=== PATIENT | female | born 1995 | race American Indian/Alaskan Native ===

== ENCOUNTER 2020-01-12 20:43 | Emergency (ER) | payer SELFPAY ==
[2020-01-12 21:25] LABS: Basophils % (Auto) 0.3 % (0.0-1.8); Eosinophils # (Auto) 0.1 K/mm3 (0.0-0.4); Hematocrit 36.8 % (30.3-42.9); Hemoglobin 12.2 gm/dl (10.1-14.3); Lymphocytes # (Auto) 2.3 K/mm3 (1.2-5.4); Lymphocytes % (Auto) 23.5 % (13.4-35.0); Mean Corpuscular HGB Conc 33 % (30-34); Mean Corpuscular Volume 80 fl (79-97); Monocytes # (Auto) 0.8 K/mm3 (0.0-0.8); Monocytes % (Auto) 7.7 % (0.0-7.3); Platelet Count 326 K/mm3 (140-440); Red Blood Count 4.62 M/mm3 (3.65-5.03); Red Cell Distribution Width 16.1 % (13.2-15.2)
[2020-01-12 21:38] LABS: HCG Qualitative,Urine Negative (Negative)
[2020-01-12 21:38] LABS: Alanine Aminotransferase 14 units/L (7-56); Albumin 4.1 g/dL (3.9-5); BUN/Creatinine Ratio 8; Blood Urea Nitrogen 7 mg/dL (7-17); Calcium 9.4 mg/dL (8.4-10.2); Hemolysis Index 4
[2020-01-12 21:40] LABS: Amphetamine Screen,Urine PRESUMPTIVE NEGATIVE; Benzodiazepines Screen,Urine PRESUMPTIVE NEGATIVE; Cannabinoid Screen,Urine PRESUMPTIVE NEGATIVE; Cocaine Screen,Urine PRESUMPTIVE NEGATIVE; Methadone Screen,Urine PRESUMPTIVE NEGATIVE; Opiate Screen,Urine PRESUMPTIVE NEGATIVE
[2020-01-12 22:03] LABS: Mucus,Urine FEW /HPF; RBC,Urine < 1.0 /HPF (0.0-6.0)
[2020-01-12 22:07] LABS: Color,Urine Yellow (Yellow)
[2020-01-12 22:08] LABS: Ictotest,Urine Negative (Negative); Urobilinogen,Urine < 2.0 mg/dL (<2.0)
--- NOTE | 2020-01-12 22:25 | Emergency Department Report ---
ED Psych HPI - General Chief Complaint: Psych Stated Complaint: AMS Time Seen by Provider: 01/12/20 20:53 Source: EMS Mode of arrival: Ambulatory Limitations: Altered Mental Status - History of Present Illness Initial Comments: Chief complaint: "I am Charles Navarro." HPI this is a 24-year-old female without known past medical history who presents with "mental episode". Her sister called 911. She states that her sister has had several mental episodes in the past. She does not appear to have a diagnosis of mental health disorder. Sister informed EMS that patient has been talking to herself. Not answering questions appropriately. Sister also stated that she has been walking up and down the street wrapped in blankets without clothing. At this time contact information of family members not available. Patient just continues to keep repeating her name. She states that "I do not know much." Complaint: altered mental status, other (Abnormal behavior) Associated Psychiatric Symptoms: racing thoughts, other (Walking outside without clothes, disorganized speech and thought) Quality: constant Improves With: none Context: not taking psychiatric Associated Symptoms: denies other symptoms Treatments Prior to Arrival: other (Transported by EMS) - Related Data Allergies Allergy/AdvReac Type Severity Reaction Status Date / Time No Known Allergies Allergy Unverified 01/12/20 20:57 ED Review of Systems ROS: Stated complaint: AMS Other details as noted in HPI Comment: Unobtainable due to pts medical conditions (Limited due to patient's mental state and cooperation. "I am not in pain. I do not know much.") ED Past Medical Hx - Past Medical History Previous Medical History?: No - Surgical History Past Surgical History?: No - Social History Smoking Status: Never Smoker Substance Use Type: None ED Physical Exam - General Limitations: No Limitations General appearance: alert, in no apparent distress, other (Calm, flat affect, poor eye contact) - Head Head exam: Present: atraumatic, normocephalic - Eye Eye exam: Present: normal appearance - ENT ENT exam: Present: mucous membranes moist - Neck Neck exam: Present: normal inspection, full ROM - Respiratory Respiratory exam: Present: normal lung sounds bilaterally. Absent: respiratory distress, wheezes, rales, rhonchi - Cardiovascular Cardiovascular Exam: Present: regular rate, normal rhythm, normal heart sounds. Absent: systolic murmur, diastolic murmur, rubs, gallop - GI/Abdominal GI/Abdominal exam: Present: soft, normal bowel sounds. Absent: distended, tenderness, guarding, rebound - Extremities Exam Extremities exam: Present: normal inspection - Back Exam Back exam: Present: normal inspection - Neurological Exam Neurological exam: Present: alert, other (Oriented to place and person) - Psychiatric Psychiatric exam: Present: flat affect, other (Speaking to person not in the room) - Skin Skin exam: Present: warm, dry, intact, normal color. Absent: rash ED Course Vital Signs 01/12/20 01/12/20 20:58 21:37 Temperature 98.1 F Pulse Rate 103 H Respiratory 16 18 Rate Blood Pressure 98/77 O2 Sat by Pulse 99 99 Oximetry ED Medical Decision Making - Lab Data Result diagrams: 01/12/20 20:59 01/12/20 20:59 Laboratory Results - last 24 hr 01/12/20 01/12/20 01/12/20 20:59 20:59 20:59 WBC 9.9 RBC 4.62 Hgb 12.2 Hct 36.8 MCV 80 MCH 27 L MCHC 33 RDW 16.1 H Plt Count 326 Lymph % (Auto) 23.5 [place] % (Auto) 7.7 H Eos % (Auto) 1.0 Baso % (Auto) 0.3 Lymph # (Auto) 2.3 [place] # (Auto) 0.8 Eos # (Auto) 0.1 Baso # (Auto) 0.0 Seg Neutrophils % 67.5 Seg Neutrophils # 6.7 Sodium 134 L Potassium 3.9 Chloride 101.7 Carbon Dioxide 22 Anion Gap 14 BUN 7 Creatinine 0.9 Estimated GFR > 60 BUN/Creatinine Ratio 8 Glucose 81 Calcium 9.4 Total Bilirubin < 0.20 AST 15 ALT 14 Alkaline Phosphatase 60 Total Protein 8.1 Albumin 4.1 Albumin/Globulin Ratio 1.0 Urine Color Urine Turbidity Urine pH Ur Specific [place] Urine Protein Urine Glucose (UA) Urine Ketones Urine Nitrite Ur Reducing Substances Urine Ictotest Urine Urobilinogen Ur Leukocyte Esterase Urine WBC (Auto) Urine RBC (Auto) U Epithel Cells (Auto) Urine Mucus Urine HCG, Qual Salicylates < 0.3 L Urine Opiates Screen Urine Methadone Screen Acetaminophen Ur Barbiturates Screen Ur Phencyclidine Scrn Ur Amphetamines Screen U Benzodiazepines Scrn Urine Cocaine Screen U Marijuana (THC) Screen Drugs of Abuse Note Plasma/Serum Alcohol 01/12/20 01/12/20 01/12/20 20:59 20:59 21:10 WBC RBC Hgb Hct MCV MCH MCHC RDW Plt Count Lymph % (Auto) [place] % (Auto) Eos % (Auto) Baso % (Auto) Lymph # (Auto) [place] # (Auto) Eos # (Auto) Baso # (Auto) Seg Neutrophils % Seg Neutrophils # Sodium Potassium Chloride Carbon Dioxide Anion Gap BUN Creatinine Estimated GFR BUN/Creatinine Ratio Glucose Calcium Total Bilirubin AST ALT Alkaline Phosphatase Total Protein Albumin Albumin/Globulin Ratio Urine Color Yellow Urine Turbidity Clear Urine pH 6.0 Ur Specific [place] 1.020 Urine Protein 30 mg/dl Urine Glucose (UA) Negative Urine Ketones Negative Urine Nitrite Negative Ur Reducing Substances Not Reportable Urine Ictotest Negative Urine Urobilinogen < 2.0 Ur Leukocyte Esterase Negative Urine WBC (Auto) 1.0 Urine RBC (Auto) < 1.0 U Epithel Cells (Auto) 1.0 Urine Mucus Few Urine HCG, Qual Negative Salicylates Urine Opiates Screen Urine Methadone Screen Acetaminophen 5.0 L Ur Barbiturates Screen Ur Phencyclidine Scrn Ur Amphetamines Screen U Benzodiazepines Scrn Urine Cocaine Screen U Marijuana (THC) Screen Drugs of Abuse Note Plasma/Serum Alcohol < 0.01 01/12/20 21:10 WBC RBC Hgb Hct MCV MCH MCHC RDW Plt Count Lymph % (Auto) [place] % (Auto) Eos % (Auto) Baso % (Auto) Lymph # (Auto) [place] # (Auto) Eos # (Auto) Baso # (Auto) Seg Neutrophils % Seg Neutrophils # Sodium Potassium Chloride Carbon Dioxide Anion Gap BUN Creatinine Estimated GFR BUN/Creatinine Ratio Glucose Calcium Total Bilirubin AST ALT Alkaline Phosphatase Total Protein Albumin Albumin/Globulin Ratio Urine Color Urine Turbidity Urine pH Ur Specific [place] Urine Protein Urine Glucose (UA) Urine Ketones Urine Nitrite Ur Reducing Substances Urine Ictotest Urine Urobilinogen Ur Leukocyte Esterase Urine WBC (Auto) Urine RBC (Auto) U Epithel Cells (Auto) Urine Mucus Urine HCG, Qual Salicylates Urine Opiates Screen Presumptive negative Urine Methadone Screen Presumptive negative Acetaminophen Ur Barbiturates Screen Presumptive negative Ur Phencyclidine Scrn Presumptive negative Ur Amphetamines Screen Presumptive negative U Benzodiazepines Scrn Presumptive negative Urine Cocaine Screen Presumptive negative U Marijuana (THC) Screen Presumptive negative Drugs of Abuse Note Disclamer Plasma/Serum Alcohol - Medical Decision Making This is a 24-year-old female who presents with acute psychosis. Patient has disorganized thought. Repetitive speech. Responding to internal stimuli with bizarre behavior. With history of "mental episodes", I suspect the patient has undiagnosed mental health disorder. Patient does not have an acute medical condition which needs treatment or stabilization. She is medically clear for psychiatric care. I have reviewed CBC chemistry serum toxicology urine toxicology urinalysis. All labs obtained are within normal limits. Due to severe symptoms and inability to care for self, I have placed patient on involuntary hold. I have completed 1013 form. Currently awaiting treatment recommendations by psychiatric team. Critical care attestation.: If time is entered above; I have spent that time in minutes in the direct care of this critically ill patient, excluding procedure time. ED Disposition Clinical Impression: Acute psychosis Disposition: [id number] ANOTHER TYPE [facility] Is pt being admited?: No Does the pt Need Aspirin: No Condition: Stable
--- NOTE | 2020-01-13 09:41 | Consultation ---
History of Present Illness - Reason for Consult Consult date: 01/13/20 Reason for consult: psychosis - History of Present Psychiatric Illness Holley Navarro is a 24y/o female patient who presented to the ER with psychosis, after the sister called 911 an said the patient was having a mental episode, according to chart. During my interview with the patient, she is lying down. She is delusional, and thought process somewhat disorganized. She tells me that she brought herself to the hospital for "broken bones." She is asking to check herself out. She says "I brought myself here so why can't I just leave." She says "I be around a lot. A lot of people around me try to hurt themselves." She then says "that's what makes me think about and hurting people." The patient then says, "people hurt me, but I don't hurt people." She says "so that's why I came here." It's unclear if the patient doesn't know a lot of her history or is just unwilling to give it. She says she's never seen a psychiatrist in the past. She then states "they never talk to me. I don't know what they diagnosed me with." She denies any illicit drug use, alcohol or nicotine. The nurse caring for the patient today, states she's been laughing out loud and having conversations with people who aren't around. PAST PSYCHIATRIC HISTORY: Diagnoses: Denies Suicide attempts or Self-harm behavior: Denies Prior psychiatric hospitalizations: Denies Substance Abuse history: Denies Previous psychiatric medications tried: Denies Outpatient treatment: Denies PAST MEDICAL HISTORY: No significant past medical history Family Psychiatric History: None reported or documented SOCIAL HISTORY Marital Status: Single Living Arrangements: "with some lady" Employment Status: "disabled" Access to guns/weapons: Denies Education: High school History of Abuse: None reported Legal History: None reported REVIEW OF SYSTEMS Constitutional: Negative for weight loss ENT: Negative for stridor Respiratory: Negative for cough or hemoptysis All other systems reviewed and are negative MENTAL STATUS EXAMINATION General Appearance and Behavior: Age appropriate, good hygiene, wearing appropriate clothes, poor eye contact, not forthcoming Cooperation: Participating but withdrawn and guarded Psychomotor Behavior: Psychomotor agitation Mood: okay Affect and affective range: Restricted Thought Process: Circumstantial, Illogical, disorganized Thought Content: delusions, hallucinations Speech: normal tone and pace Suicidal Ideation: Denies SI Homicidal Ideation: Denies HIl Impulse Control: Impaired Hallucinations: V/V Delusions: Yes Insight and Judgment: Limited insight and judgment Memory: Normal, Attention: Divided attention impaired Orientation: Alert, oriented, Assessment and Plan (1) Schizoaffective disorder, bipolar type Current Visit: Yes Status: Acute TREATMENT PLAN [address] 125mg po BID Risperidone 0.25mg po BID Trazodone 50mg po qhs Sitter: Defer to primary Medical: Per primary Disposition: Recommend acute inpatient psychiatric treatment Will follow. Thank you for this consult. Medications and Allergies Allergies Allergy/AdvReac Type Severity Reaction Status Date / Time No Known Allergies Allergy Verified 01/13/20 09:48 Mental Status Exam - Vital signs Last Vital Signs Temp 98.0 F 01/13/20 08:39 Pulse 77 01/13/20 08:39 Resp 20 01/13/20 08:39 BP 105/49 01/13/20 08:39 Pulse Ox 98 01/13/20 08:39 Results Result Diagrams: 01/12/20 20:59 01/12/20 20:59 Abnormal lab results 01/12/20 01/12/20 01/12/20 Range/Units 20:59 20:59 20:59 MCH 27 L (28-32) pg RDW 16.1 H (13.2-15.2) % [place] % (Auto) 7.7 H (0.0-7.3) % Sodium 134 L (137-145) mmol/L Salicylates < 0.3 L (2.8-20.0) mg/dL Acetaminophen (10.0-30.0) ug/mL 01/12/20 Range/Units 20:59 MCH (28-32) pg RDW (13.2-15.2) % [place] % (Auto) (0.0-7.3) % Sodium (137-145) mmol/L Salicylates (2.8-20.0) mg/dL Acetaminophen 5.0 L (10.0-30.0) ug/mL All other labs normal.
[2020-01-13] MEDS: DIVALPROEX DR 125 MG TAB PO SCH ×3 (10:34→21:32)
[2020-01-13] MEDS: risperiDONE 0.25 MG TAB PO SCH ×3 (10:34→21:32)
[2020-01-13 11:33] LABS: Alanine Aminotransferase 13 units/L (7-56); Albumin 3.9 g/dL (3.9-5); Blood Urea Nitrogen 7 mg/dL (7-17); Calcium 9.2 mg/dL (8.4-10.2); Hemolysis Index 6
[2020-01-13 11:37] LABS: BUN/Creatinine Ratio 12
[2020-01-13] MEDS ORDERED: traZODone 50 MG TAB PO SCH (22:00)
[2020-01-14 09:05] VITALS: BP 124/78
--- NOTE | 2020-01-14 09:57 | Progress Note ---
Subjective - Reason for Consult Consult date: 01/14/20 Reason for consult: psychosis - Chief Complaint Chief complaint: During my interview with the patient this morning, she is lying down. She is a/o x 3. She is talkative. Her thoughts are at times disorganized. She is having flight of ideas, and hallucinating. The patient denies SI/HI, but then starts to tell me, "I been around people in caskets on the grass." She says, "just a lot of around me." The patient then says, "I don't go anywhere but to the stores, up the road, and back down there." REVIEW OF SYSTEMS Constitutional: Negative for weight loss ENT: Negative for stridor Respiratory: Negative for cough or hemoptysis All other systems reviewed and are negative MENTAL STATUS EXAMINATION General Appearance and Behavior: Age appropriate, good hygiene, wearing appropriate clothes, poor eye contact, not forthcoming Cooperation: Participating but withdrawn and guarded Psychomotor Behavior: Psychomotor agitation Mood: fine Affect and affective range: Restricted Thought Process: Circumstantial, Illogical, disorganized Thought Content: delusions, hallucinations Speech: normal tone and pace Suicidal Ideation: Denies SI Homicidal Ideation: Denies HIl Impulse Control: Impaired Hallucinations: V/V Delusions: Yes Insight and Judgment: Limited insight and judgment Memory: Normal, Attention: Divided attention impaired Orientation: Alert, oriented, Assessment and Plan (1) Schizoaffective disorder, bipolar type Current Visit: Yes Status: Acute TREATMENT PLAN [address] 250mg po BID Increase Risperidone 0.5mg po BID Trazodone 50mg po qhs Sitter: Defer to primary Medical: Per primary Disposition: Recommend acute inpatient psychiatric treatment Will follow. Thank you for this consult. Mental Status Exam - Vital signs Last Vital Signs Temp 98.0 F 01/14/20 09:04 Pulse 62 01/14/20 09:04 Resp 20 01/14/20 09:04 BP 124/78 01/14/20 09:04 Pulse Ox 98 01/14/20 09:04
[2020-01-14] MEDS ORDERED: risperiDONE 0.25 MG TAB PO SCH (10:00)
[2020-01-14] MEDS ORDERED: DIVALPROEX DR 250 MG TAB PO SCH (10:00)
== END 2020-01-14 18:59 | disposition other institution (70) ==
LOC: ED 20:43
DX: F25.0 Schizoaffective disorder, bipolar type (principal); F23 Brief psychotic disorder; Z79.899 Other long term (current) drug therapy
CPT/HCPCS: 36415; 80053; 80307; 80320; 81001; 81025; 85025; G0480